=== PATIENT | male | born 1985 | race Caucasian/White ===

== ENCOUNTER 2017-01-16 09:45 | Emergency (ER) | payer OTHER ==
[~2017-01-16] VITALS: Ht 188 cm; Wt 89.8 kg
[2017-01-16 09:56] VITALS: TEMP 36.4; Ht 188 cm; Wt 89.8 kg
--- NOTE | 2017-01-16 10:52 | DIAGNOSTIC IMAGING REPORT ---
RIGHT HAND MIN 3 VIEWS ROUTINE CLINICAL HISTORY: laceration and injury to right hand Right trauma. Laceration. COMPARISON: None. DISCUSSION: The fourth and fifth fingers are held in flexion. There is a soft tissue laceration with soft tissue substance loss adjacent to the distal aspect proximal phalanx third finger. Trace amount of debris is identified within the wound. No acute bony abnormality. Cortical margins appear to be intact. There is no evidence for soft tissue swelling. IMPRESSION: 1. Soft tissue laceration adjacent to the distal aspect proximal phalanx third finger. 2. Trace amount of radiopaque debris within the wound channel. 3. No acute bony abnormality. 4. The fourth and fifth fingers are held in flexion possibly on a positional basis Electronically signed by: Ramon Jamison M.D. 01/16/2017 10:51 AM Dictated Date/Time: 01/16/2017 10:49 AM
[2017-01-16] MEDS ORDERED: MoRPHine SULFATE 4 MG/ML 1 ML CARP\\VIAL IV STA (11:01)
[2017-01-16] MEDS ORDERED: ONDANSETRON INJ 2 MG/ML 2 ML VIAL IV STA (11:01)
[2017-01-16] MEDS ORDERED: DIPHTHERIA/TETANUS/PERTUSSIS 0.5 ML SYR/VIAL IM. ONE (11:15)
[2017-01-16] MEDS ORDERED: SODIUM CHLORIDE 0.9% 1000ML 1,000 ML IV ONE (11:15)
[2017-01-16] MEDS ORDERED: XYLOCAINE 1%/SOD BICARB 20 ML VIAL INFIL ONE (11:15)
[2017-01-16] MEDS ORDERED: MoRPHine SULFATE 10 MG/ML CARP/VIAL ONE (12:03)
[2017-01-16] MEDS ORDERED: OXYC-57 PO (13:18)
[2017-01-16] MEDS ORDERED: [UNRECOGNIZED DRUG - OTHER] PO (13:18)
[2017-01-16 13:36] VITALS: BP 120/63; PULSE 67; O2SAT 100
--- NOTE | 2017-01-16 17:55 | EMERGENCY ROOM VISIT NOTE ---
ED Visit Note First contact with patient: 10:33 Chief Complaint: Right hand lacerations. History of Present Illness: Mr. Ly is a 31-year-old white male who ambulates into the ED complaining of lacerations to the right hand. Historically patient reports he is right-hand dominant. Patient reports approximately one to 2 hours before he arrived in the emergency department he was at work placing sheet-metal onto a building structure. He reports the sheet-metal was being pushed up to him and he was not able to keep up with the sheet-metal and subsequently developed lacerations to the palmar aspect of the right hand. He does report bleeding has been controlled prior to arrival at the hospital but he has not cleaned his wounds. Associated with his wounds he reports he has a combination of a sharp and burning pain throughout the palmar aspect of the hand. He rates his discomfort 9/10. The pain is nonradiating. The pain worsens with all movements of the hands and the fingers , palpation in the area of his laceration. He has not identified any alleviating factors related to the pain. He has not had any medications for pain prior to arrival at the hospital. Associated with his pain he does report he has a numbness sensation of the index finger and paresthesias of the middle and ring fingers. Review of Systems: As noted above in history of present illness. Past Medical History: Patient denies. Current Medications: Patient denies. Allergies to Medications: Cefadroxil. Social History: Patient is currently employed; he feels safe in his home environment; he admits to tobacco use and denies alcohol use. Tetanus Immunization Status: Patient reports greater than 10 years. Physical Examination: Vital Signs: Date Time Temp Pulse Resp B/P Pulse Ox O2 Delivery O2 Flow Rate FiO2 01/16/17 13:36 67 16 120/63 100 01/16/17 11:20 67 18 113/64 100 Room Air 01/16/17 09:56 36.4 78 18 160/77 100 Room Air GENERAL: 31-year-old male in mild distress due to pain, nontoxic-appearing, afebrile and hemodynamically stable. NEUROLOGICAL: Awake, alert and oriented to person, place and time. Answering questions appropriately and following commands. SKIN: Warm, dry and pink. Right Hand: Laceration #1:7.1 cm full-thickness laceration starting between the distal aspects of the fourth and fifth metacarpal, radiating laterally to the web be playing the third and fourth metacarpal and extending to the back of the hand and over the distal aspect of the third metacarpal. Laceration #2:4.1 cm full-thickness laceration approximately three quarters circumferential around the distal aspect of the proximal phalanx of the middle finger. Bleeding was controlled at the time of my evaluation. RIGHT HAND: Soft tissue injuries as noted above. No gross bony deformities. Moderate to severe tenderness throughout the hands and all the fingers. Throughout the fingers the skin was warm and pink and capillary refill was brisk. He reports he had the absence of sensation in the middle finger and paresthesias through the ring finger. He had difficulty doing range of motion testing and muscle strength. He was minimally able to flex and extend the joints of the ring and little fingers. He was able to minimally move the third MCP joint but reports she was not able to flex or extend the third PIP or DIP joints. ED Course: Patient is assessed as noted above. Right Hand X-Rays: Were read by myself and the radiologist showing no acute fractures or dislocations. Radiologist does note a few small foreign bodies. Patient's case was initially consulted with Dr. Epperson, orthopedics; he recommended contacting Dr. Mrorow, hand specialist. Patient's case was consulted with Dr. Morrow; he recommended good cleaning of the wound, approximation of the wound edges, splinting, antibiotic coverage and office follow-up tomorrow. An IV lock was initiated and patient was hydrated with normal saline and received a total of 10 mg of morphine IV and 4 mg of Zofran IV. Wound Repair: Complexity: Basic Verbal consent was obtained after the risks and benefits were explained. The skin was prepped with betadine and a sterile field set. Wound edges of the wound was anesthetized with a total of 14.2 ml buffered 1% lidocaine. The wounds was explored for foreign bodies and multiple small foreign bodies were found and removed. Copious irrigation was performed using sterile saline. With direct pressure the bleeding subsided. Debridement was not performed. The wound edges were loosely approximated using 4-0 Ethilon with a total of 11 simple interrupted sutures. Hemostasis and excellent approximation was achieved. Antibacterial ointment and a sterile dressing applied. Patient's hands and fingers were immobilized with an Ortho-Glass splint. Patient was educated about tonight's findings and instructed on his treatment plan; he verbalizes understanding and agreement with this plan. Clinical Impression: Lacerations of the right hand. Possible tendon and nerve damage. Work related injury. Disposition: Patient discharged home in stable condition; prior to departure he was reassessed and subjectively reported he was still in a moderate amount of pain and rated his discomfort 8/10. Plan: Patient was placed on a sliding pain scale of acetaminophen and Percocet; appropriate precautions were discussed with the patient about narcotic use. Patient was prescribed doxycycline 100 mg 2 times a day for 7 days. Patient was given the contact information for Dr. Morrow; she was encouraged to give his office a call for follow-up care and treatment. Patient was encouraged to return to the ED for worsening/uncontrolled pain, any fevers or any new/concerning symptoms. Comfort measures, wound care signs of infection were discussed with the patient. Patient was encouraged to follow-up with personal physician or return emergency department in days and/or signs of infection.
== END 2017-01-16 13:39 | disposition home or self-care (01) ==
LOC: C.EDB 09:49 → C.EDD 13:39
DX: S61.411A Laceration without foreign body of right hand, initial encounter (principal); W45.8XXA Other foreign body or object entering through skin, initial encounter; Y92.89 Other specified places as the place of occurrence of the external cause; Y99.0 Civilian activity done for income or pay; F17.200 Nicotine dependence, unspecified, uncomplicated; Z88.8 Allergy status to other drugs, medicaments and biological substances

== ENCOUNTER → 2017-09-29 | Outpatient (CLI) | payer OTHER ==
[~2017-09-29] MED LIST: [UNRECOGNIZED DRUG - OTHER] PO
== END | disposition home or self-care (01) ==
LOC: C.LABSPEC 17:28
PROVIDERS: ATTEND Orthopaedic Surgery
DX: L02.511 Cutaneous abscess of right hand (principal)